=== PATIENT | male | born 1960 | race Caucasian/White ===

== ENCOUNTER → 2016-08-22 | Outpatient (CLI) | payer OTHER ==
[~2016-08-22] MED LIST: AMLODIPINE BESYL5 MG PO; ASPIRIN81 M2 PO; CELECOXIB200 MG PO; OXYCODONE-ACET1 EACH PO; PERCOCET5/325 PO; VITAMIN C1000 M2 PO; VITAMIN D31000 UNIT PO; XARELTO10 MG PO; ZESTORETIC 20-1 EAC1 PO; ZESTORETIC 20/11 TA1 PO; ZINC50 M1 PO
--- NOTE | ~2016-08-22 | EKG ---
PATIENT: CIPRIANO RODAS UNIT #: [id number] Ventricular Rate: 79 BPM Atrial Rate: 79 BPM P-R Interval: 166 ms QRS Duration: 90 ms Q-T Interval: 368 ms QTC Calculation(Bezet): 421 ms P Closter: 47 degrees Calculated R Closter: 72 degrees Calculated T Closter: 67 degrees Diagnosis Line: Normal sinus rhythm Diagnosis Line: Cannot rule out Septal infarct , age undetermined Diagnosis Line: Borderline ECG Diagnosis Line: When compared with ECG of 09-NOV-2014 13:22, Diagnosis Line: Possible Septal infarct is now Present Diagnosis Line: Confirmed by LONNIE MUÑOZ MD ([id number]) on 08/22/2016 Diagnosis Line: 10:46:47 PM INTERPRETING MD: WANDA HER
[2016-08-22 18:35] LABS: BUN/CREATININE RATIO 16.36; CALCIUM SERUM 9.3 mg/dL (8.4-10.2); CREATININE SERUM 1.1 mg/dL (0.6-1.4); GLOM FILT RATE Estimated 73.6 mL/min (>60); POTASSIUM 4.5 mmol/L (3.5-5.1)
== END | disposition home or self-care (01) ==
LOC: CAMB 14:18
PROVIDERS: Orthopaedic Surgery
DX: Z01.818 Encounter for other preprocedural examination (principal); S82.892A Other fracture of left lower leg, initial encounter for closed fracture
CPT/HCPCS: 36415; 80048; 93005

== ENCOUNTER 2016-09-04 06:18 | Inpatient (IN) | payer OTHER ==
--- NOTE | ~2016-09-04 | A ---
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 Pt now s/p left ankle revision and fusion with hardware removal and bone graft. RD seeing pt's for weight loss. RD spoke with the pt at bedside. Pt reports that he started losing weight due to H.pylori. Pt reports that he used to weigh 235# about a year ago, then lost ~50#. Weight loss stopped about 6 months ago. Pt reports that, although the weight loss was unintentional, he's happy with his current weight. RD agreed that the pt is at a healthy weight, and encouraged the pt to consume adequate protein for incision healing. Pt agreed, stating his appetite has improved. Pt denied the need for Ensure supplemets or further diet education. Dx: Increased protein needs RT recent surgery AEB closed surgical incision to left ankle. Intervention: 1. Regular diet 2. Protein with each meal 3. Supplements as needed Monitoring, Evaluation and Goals: 1. Oral intake; tolerate >75% of meals 2. Weight; prevent further unintentional weight loss [facility] Nutrition Therapy DATE: 09/05/16 Patient: CIPRIANO RODAS Physician: JERALD Address: [address] [facility] Room/Bed: [address] [place] [address], Zip: [place] [address] Admit Date: 09/04/16 Date of : 56 Height: 5 11 Weight: 164 74.5 3. Skin; promote healing Recommendations: 1. Continue regular diet as tolerated. 2. RD encouraged the pt to order a protein option with each meal. 3. If protein intake is inadequate, consider adding a supplement such as Ensure compact or Magic Cup BID. Pt is at mild nutritional risk. RD will follow hospital course per protocol. Respectfully, KOMAL NOGUERA RD, LD [facility] cc: client file
--- NOTE | ~2016-09-04 | OR ---
Unit #: [id number] #: [id number] Patient: CIPRIANO RODAS [id number] [address] [place], [place] [address] [id number] MR#: [id number] NAME: CIPRIANO RODAS. ROOM: 452 Date of Procedure: 09/04/2016 Admission Date: 09/04/2016 Surgeon: Rodrigue Womack M.D. : 1960 Attending Physician: Rodrigue Womack M.D. OPERATIVE REPORT PREOPERATIVE DIAGNOSES 1. Left ankle pseudarthrosis. 2. Left ankle retained hardware. POSTOPERATIVE DIAGNOSES 1. Left ankle pseudarthrosis. 2. Left ankle retained hardware. PROCEDURES PERFORMED 1. Left ankle revision fusion (). 2. Left ankle hardware removal (). 3. Left distal fibular autogenous bone graft (). 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 ANESTHESIA General and popliteal saphenous block. 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 He also had a pre-existing flatfoot deformity, which was treated with a lateral column lengthening, and FDL transfer. The patient has failed to respond to bone stimulation and is therefore to undergo revision fusion using a lateral plate. DESCRIPTION OF PROCEDURE The patient was taken to the operating room, placed in a supine position and general anesthetic was induced. Preoperative left leg popliteal saphenous block was performed in the anesthesia holding area. The left leg was identified as the correct operative extremity during the time-out procedure. The IV antibiotic protocol was followed. The left leg was prepped and draped in the usual sterile fashion. The leg was exsanguinated and the thigh tourniquet inflated to 300 mmHg. The previous lateral longitudinal scar was used over the fibula and extended slightly anteriorly over the sinus tarsi for an additional 2 cm. Subcutaneous tissue was carefully divided. The fibula was exposed subperiosteally. The acetabular reamer was used to remove the distal fibula. The reamings from the fibula were saved to be used for autogenous bone graft later in the case. The microsagittal saw was used to cut the remaining shaft of the distal fibula and this was also morselized to be utilized for bone Unit #: [id number] #: [id number] Patient: CIPRIANO RODAS graft. Under C-arm fluoroscopic control, the two previously placed cannulated large diameter screws were identified. Guide pins were placed in each screw. Small stab incisions were made in the medial distal tibia and the two screws were easily removed. The pseudarthrosis site was then identified and opened with a series of power osteotome and curved curettes. The joint was then distracted with a laminar carbon accountant. The power osteotome and curved curettes were utilized to remove all the fibrinous material from the joint. The underlying subchondral bone was feathered with the power osteotome. Two collagen sponges soaked in Infuse bone morphogenic protein were then placed in the tibiotalar joint and the autogenous graft was placed into the tibiotalar joint. The joint was then positioned appropriately and pinned provisionally with a smooth K-wire placed from proximal medial to distal lateral. Care was taken to ensure that the heel was in mild valgus and the ankle was in neutral position. The PPS lateral plate was then applied and fixated distally with three screws and proximally with four 4.5 mm diameter cortical screws. Excellent fixation was achieved. The power osteotome was then used to decorticate the anterior distal tibia and the dorsal talar neck. Additional autogenous graft was laid along the anterior surface of the ankle joint. The tourniquet was released with a total tourniquet time of 90 minutes. Deep tissues were closed with 2-0 Vicryl. Subcutaneous tissue was closed with 3-0 Vicryl. Skin was closed with 3-0 nylon horizontal mattress sutures. Xeroform gauze, dressing, sponges, Webril, and a posterior fiberglass splint were applied. The patient was then transported to the recovery room in stable condition. ESTIMATED BLOOD LOSS Minimal. COMPLICATIONS None. SPECIMENS None. TOURNIQUET TIME 90 minutes. Dictated byMak Workman/haris TD: 09/04/2016 23:54 JOB #: [id number] Unit #: [id number] #: [id number] Patient: CIPRIANO RODAS OPERATIVE REPORT Page 1 of 1 X Anai Womack MD PROCEDURE OPERATIVE NOTE
--- NOTE | ~2016-09-04 | HP ---
Unit #: [id number] #: [id number] Patient: CIPRIANO RODAS [id number] [address] [address] [id number] O MR#: [id number] NAME: CIPRIANO RODAS. ROOM: Age: Sex: M Admission Date: 09/04/2016 : 1960 Attending Physician: Rodrigue Womack M.D. HISTORY AND PHYSICAL DATE OF ADMISSION 09/04/2016 CHIEF COMPLAINT Left ankle pain. HISTORY OF PRESENT ILLNESS The patient is a 56-year-old male who underwent previous open reduction internal fixation of a left distal tibia and fibula fracture in 2011. He developed posttraumatic arthritis and a flat foot deformity. The patient underwent left ankle fusion, flexor digitorum longus tendon transfer to navicular, lateral column lengthening, and ankle hardware removal two years ago. 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 The patient is therefore admitted for revision ankle fusion using a lateral plate. We will utilize the fibula for bone graft and also use INFUSE bone morphogenic protein to ensure fusion. PAST MEDICAL HISTORY Remarkable for: 1. COPD. 2. Hypertension. 3. Sleep apnea. PAST SURGICAL HISTORY 1. Lower back surgery. 2. Vasectomy. 3. Tonsillectomy. 4. Foot and ankle surgery as noted above. HOME MEDICATIONS 1. Amlodipine. 2. Aspirin. 3. Lisinopril. ALLERGIES None. SOCIAL HISTORY The patient is a social drinker. He smokes up to two packs per day. FAMILY HISTORY Hypertension, stroke, arthritis, colon cancer. Unit #: [id number] #: [id number] Patient: CIPRIANO RODAS PHYSICAL EXAMINATION HEIGHT: 5 feet 11 inches WEIGHT: 235 pounds GENERAL: He is a well-developed, well-nourished male in no acute distress. HEENT: Pharynx is clear. NECK: Supple without masses. HEART: Regular sinus rhythm without murmurs or gallops. LUNGS: Clear. ABDOMEN: Soft and nontender without masses or organomegaly. LEFT ANKLE: Slight external rotation. The patient has 5 degrees of ankle equinus. He has healed incisions over the anteromedial and anterolateral ankle. There is a healed incision over the proximal tibia. He has a palpable dorsalis pedis pulse. He has tenderness and swelling over the anterior aspect of the tibiotalar joint. There is numbness on the dorsal aspect of the hallux. Sensation is otherwise normal. Foot alignment with standing shows a slightly cavus arch with neutral heel. DIAGNOSTIC STUDIES IMAGING: Standing x-rays of the left ankle demonstrate a tibiotalar pseudarthrosis with two intact large diameter cannulated screws placed from proximal medial to distal lateral. 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 PLAN The patient will undergo hardware removal and revision ankle fusion to a lateral approach using a laterally-based locking plate. We will utilize the fibula for bone graft and use INFUSE bone morphogenic protein. This procedure was described along with the risks of bleeding, infection, nerve damage, need for further surgery in the future, prolonged recovery time, deep venous thrombosis, pulmonary embolism and anesthetic complications. The patient understands that it will take at least 3 months for the ankle to fuse. He understands continued risks of nonunion give his smoking history. Dictated by Mak Soto/yuli TD: 09/03/2016 20:45 JOB #: [id number] Unit #: [id number] #: [id number] Patient: ADRIANNACIPRIANO Celi HISTORY AND PHYSICAL Page 1 of 1 X Anai Womack MD X HISTORY AND PHYSICAL
--- NOTE | ~2016-09-04 | DS ---
Unit #: [id number] #: [id number] Patient: CIPRIANO RODAS [id number] [address] [place], [place] [address] [id number] I MR#: [id number] NAME: CIPRIANO RODAS. ROOM: 452 Age: 56 Sex: M Admission Date: 09/04/2016 : 1960 Discharge Date: 09/06/2016 Attending Physician: Rodrigue Womack M.D. Primary Care Physician: Generic Doctor Not In System DISCHARGE SUMMARY CHIEF COMPLAINT Left ankle pain. HISTORY OF PRESENT ILLNESS The patient is a 56-year-old male smoker, who has undergone left ankle fusion two years ago, which now has developed a nonunion despite bone growth stimulation. The patient is admitted for hardware removal and revision left ankle fusion. HOSPITAL COURSE The patient was taken to the operating room on the date of admission, where he underwent removal of hardware and revision left ankle fusion using distal fibular bone graft, infused bone with hygienic protein and a lateral plate. There were no operative complications. He had a stable postoperative course. The wounds were healing well on the second postoperative day. He remained afebrile with stable vital signs. He was seen by physical therapy on a daily basis and instructed on how to remain nonweightbearing on his operative site. He is discharged in stable condition on the second postoperative day. FINAL DIAGNOSIS Left ankle pseudoarthrosis with retained hardware. DISPOSITION/RECOMMENDATIONS 1. The patient is discharged home. 2. He will keep the dressing clean, dry and intact and will continue ice and elevation. He will also remain strictly nonweightbearing on the left ankle for a total of three months. DISCHARGE MEDICATIONS 1. Home medications. 2. He will not take Celebrex. 3. He will take Percocet 5/325 mg 1-2 p.o. q.4-6 h. p.r.n. pain. 4. Xarelto 10 mg p.o. daily for an additional 12 days. FOLLOWUP Follow up in my office in 10-14 days for dressing changes, stitch removal and application of a cast. Dictated by.Janet Womack M.D. Unit #: [id number] #: [id number] Patient: CIPRIANO RODAS RTH/christina TD: 09/07/2016 11:08 JOB #: [id number] CC: Rodrigue Womack M.D. DISCHARGE SUMMARY Page 1 of 1 X Anai Womack MD DISCHARGE SUMMARY
[~2016-09-04 06:18] MED LIST changes: -OXYCODONE-ACET1 EACH PO
[2016-09-06] MEDS ORDERED: XARELTO10 MG PO (10:39)
[2016-09-06] MEDS ORDERED: OXYCODONE-ACET1 EACH PO (10:43)
== END 2016-09-06 13:00 | disposition home or self-care (01) | DRG 494 ==
LOC: CSUR 06:18 → CPACUOF 12:30 → CSUR 13:24 → CPACUOF 13:24 → C4B 13:24 → CPACUOF 14:30 → C4B 14:30
PROVIDERS: Orthopaedic Surgery
PROC: 0SGG07Z Fusion of Left Ankle Joint with Autologous Tissue Substitute, Open Approach (ICD-10-PCS; principal; 2016-09-04 09:30)
PROC: 0SPG04Z Removal of Internal Fixation Device from Left Ankle Joint, Open Approach (ICD-10-PCS; 2016-09-04 09:30)
PROC: 3E0U0GB Introduction of Recombinant Bone Morphogenetic Protein into Joints, Open Approach (ICD-10-PCS; 2016-09-04 09:30)
DX: M96.0 Pseudarthrosis after fusion or arthrodesis (principal); I10 Essential (primary) hypertension; J44.9 Chronic obstructive pulmonary disease, unspecified; G47.30 Sleep apnea, unspecified; H91.90 Unspecified hearing loss, unspecified ear; D64.9 Anemia, unspecified; Z79.82 Long term (current) use of aspirin; Z82.3 Family history of stroke; Z82.49 Family history of ischemic heart disease and other diseases of the circulatory system; Z82.61 Family history of arthritis; Z80.0 Family history of malignant neoplasm of digestive organs; Y79.8 Miscellaneous orthopedic devices associated with adverse incidents, not elsewhere classified; Z86.010 Personal history of colon polyps
CPT/HCPCS: 94010; 94760; 97116; 97161; C1713; J0690; J2250; J2270; J2405; J2795; J3010; J3370